=== PATIENT | male | born 1935 | race Caucasian/White ===

== ENCOUNTER 2023-04-17 23:32 | Emergency (ER) | payer MEDICARE ==
[~2023-04-17] VITALS: Ht 170.2 cm; Wt 56.9 kg
[2023-04-18 01:58] VITALS: BP 126/65
== END 2023-04-18 01:52 | disposition home or self-care (01) ==
LOC: EMS 23:32
DX: S50.812A Abrasion of left forearm, initial encounter (principal); F03.90 Unspecified dementia, unspecified severity, without behavioral disturbance, psychotic disturbance, mood disturbance, and anxiety; F32.A Depression, unspecified; W19.XXXA Unspecified fall, initial encounter; Y93.66 Activity, soccer; Y92.89 Other specified places as the place of occurrence of the external cause; Y99.8 Other external cause status
CPT/HCPCS: 99281; Z7502